=== PATIENT | male | born 1950 | race Caucasian/White ===

== ENCOUNTER 2021-03-10 21:03 | Inpatient (IN) | payer OTHER ==
[~2021-03-10] VITALS: Ht 180.3 cm; Wt 63.2 kg
[2021-03-10 18:15] VITALS: BP 118/67
--- NOTE | 2021-03-11 03:25 | NUR ---
ADMITTED TO ROOM 512 AT 1805 SURING DAY SHIFT. PATIENT WAS RECEIVED SLEEPING IN BED. PATIENT IS A&OX4, DENIES PAIN OR SHORTNESS OF BREATH. ON ROOM AIR, O2 SAT REMAINS ABOVE 94%. VITAL SIGNS ARE STABLE. PATIENT TOLERATE ORAL MEDS WHOLE ONE AT A TIME WITH THIN LIQUIDS. LEFT SIDED HEMIPARESIS PRESENT. LEFT KNEE CONTRACTURE NOTED, PATIENT REPORTS HE WILL GET SMAPS IN THAT LEG SOMETIMES AND IT WILL CONTRACT TO ABOUT 90 DEGREES. HE ALSO REPORTS AT TIMES ONCE HIS LEG IS POSITIONED STRAIGHT, IT WILL STAY THAT WAY AND NOT WANT TO BENT AT ALL. SENSATION IN THAT LOWER EXTREMITY APPEARS TO BE DECREASED. CONTINENT OF BLADDER, URINAL LEFT AT BESIDE AND PATIENT HAS BEEN ABLE TO USE IT INDEPENDENTLY. PATIENT REPORTS NOT HAVING HAD A BM FOR SEVERAL DAYS. PASSING FLATUS, PRN SENNA ADMINISTERED.BOWEL SOUNDS ARE PRESENT, ABD IS SOFT. PATIENT REQUESTED THAT CONSENT FORMS BE SINGED WHEN IS PRESENT DURING THE DAY SHIFT. (PRAVIN) ALSO REQUESTED FOR DPOA PAPERWORK TO BE PROCESSED WHILE SHE COMES AND VISIT DURING THE DAY. FALL PRECAUTIONS IN PLACE, CALL LIGHT WITHIN REACH. WILL CONTINUE TO MONITOR.
[2021-03-11 05:23] LABS: HEMATOCRIT 43.6 % (42.0-52.0); HEMOGLOBIN 14.7 gm/dL (14.0-18.0); MCH 33.4 pg (26.0-34.0); MCHC 33.8 g/dL (28.0-37.0); MCV 98.8 fL (80.0-100.0); RBC 4.42 mil/uL (4.50-6.00); RDW 12.9 % (10.5-14.5); WBC 6.9 thou/uL (4.0-11.0)
[2021-03-11 05:46] LABS: CALCIUM 9.4 mg/dL (8.5-10.1); CREATININE 0.9 mg/dL (0.7-1.3); POTASSIUM 3.6 mmol/L (3.5-5.1)
[2021-03-11 08:00] VITALS: BP 118/67
--- NOTE | 2021-03-11 09:50 | NUR ---
COVID 19 TESTING PERFORMED AT [facility] ON 03/09/21 AND RESULTS WERE NEGATIVE.
--- NOTE | 2021-03-11 09:52 | NUR ---
Chart review, 70 year old male, from [facility]. He was here after a fall at home. Dx prior history of stoke in 2019 and feb 2021. He did not have any therapy after his 1st stroke, he was still independent. Since his stroke in 2020, he needed to stay of 2nd floor of home, has to be pushed around on his rollator walker. Can not use his left side anymore. A & o x 3 with confusion and forgetfulness. He lives at home with his meg # [phone]. In a 2 story victorian house, bedroom, tv room and bathroom on 2nd floor. 4 steps to enter and about 14 steps inside the home. HH was just set up but has note started yet, related to his fall and going back to the hospital. No rehab in the past. Meg manage medication and finances. i am hurting my self caring for him, he needs to get better before coming home per meg.
[2021-03-11 11:16] LABS: CHOLESTEROL 121 mg/dL (<200); HDL CHOLESTEROL 38 mg/dL (>40); LDL CHOLESTEROL 61 mg/dL (<100); TC:HDL 3.2 Ratio (Not establshd); TRIGLYCERIDE 112 mg/dL (<150); VLDL 22 mg/dL (<40)
[2021-03-11 11:25] LABS: FOLIC ACID 4.5 ng/mL (8.6-58.9)
[2021-03-11] MEDS ORDERED: LIPITOR40 MG PO (12:56)
[2021-03-11] MEDS ORDERED: CELEXA 20 MG TA20 MG PO (12:57)
[2021-03-11] MEDS ORDERED: CULTURELLE KID1 EAC1 PO (12:58)
[2021-03-11] MEDS ORDERED: ZESTRIL20 MG PO (12:59)
[2021-03-11] MEDS ORDERED: NICOTINE PATCH1 EAC2 PO (13:01)
[2021-03-11] MEDS ORDERED: PROTONIX40 M4 PO (13:03)
[2021-03-11] MEDS ORDERED: FLORANEX TABLE1 EACH PO (13:04)
[2021-03-11] MEDS ORDERED: HYDROCHLOROTH12.5 M2 PO (13:05)
[2021-03-11] MEDS ORDERED: LEVOFLOXACIN500 MG PO (13:06)
--- NOTE | 2021-03-11 13:29 | NUR ---
Nutrition: RECommend start folate and B12 supplementation based on current levels. Vitamin D level is pending.
--- NOTE | 2021-03-11 14:02 | NUR ---
ADV. DIR. CONSULT [id number] WAS COMLETED BY THIS MOTION PICTURE PROJECTIONIST APPRENTICE. DPOA PAPERWORK WAS PLACED IN THE PATIENT'S CHART.
--- NOTE | 2021-03-11 16:23 | NUR ---
PHONE CALL FROM STATED THAT DR. RUTHERFORD CALLED AND LEFT A MESSAGE AND ASKED WHY NOTHING WAS DONE FOR THIS PATIENT EARLIER AND LIKELYHOOD OF PT GETTING BETTER IS SLIM. DR. RUTHERFORD ALSO STATED TO PT THAT HE LIKELY WOULD NOT RECOVER FROM THIS STROKE. PT IS UPSET AND , THE STATED THAT SHE BEGGED HIM TO GET HELP AND HE REFUSED TO GET TREATMENT. THE FEELS LIKE THIS IS HER FAULT, STATED THAT HE WILL PROBABLY GIVE UP AND NOT WANT TO DO THERAPY. SHE IS TALKING ABOUT HIM WANTING TO GO HOME IF HE CAN'T GET ANY HELP.
[2021-03-11 19:15] VITALS: BP 89/56
[2021-03-11 20:12] LABS: URINE BILIRUBIN NEGATIVE (Negative); URINE BLOOD NEGATIVE (Negative); URINE CLARITY CLEAR; URINE COLOR YELLOW; URINE GLUCOSE-RANDOM* NEGATIVE (Negative); URINE KETONES 1+ (Negative); URINE LEUKOCYTES-REFLEX NEGATIVE (Negative); URINE NITRITE-REFLEX NEGATIVE (Negative); URINE PROTEIN (DIPSTICK) NEGATIVE (Negative); URINE UROBILINOGEN 0.2 E.U./dl (0.2-1.0)
[2021-03-12 01:06] LABS: GLYCOHEMOGLOBIN (HGB A1C) 5.1 % (4.8-5.6)
--- NOTE | 2021-03-12 01:16 | NUR ---
PT ASSESSMENT COMPLETED AND VSS. MEDS GIVEN ORDERED AND WELL TOLERATED. FALL PRECAUTIONS IN PLACE. PT WAS VERY DISCOURAGED. PT STATED THAT HIS DOCTOR SAID THAT HE WOULD NOT GET BETTER. TALKED WITH PT ABOUT HOW REHAB CAN HELP HIM AND TO KEEP TRYING. ASST WITH REPOSITION. SLEEPING WELL. WILL CONTINUE TO MONITOR FREQUENTLY.
--- NOTE | 2021-03-12 16:33 | NUR ---
PT PRESCRIBED NORCO FOR PAIN RELIEF TYLENOL WAS NOT EFFECTIVE FOR BACK PAIN. ALSO HAS LIDOCAINE PATCH TO LOWER BACK. ABLE TO TRANSFER BY STAND PIVOT WITH MOD ASSIST USING GB.
[2021-03-12 19:41] VITALS: BP 118/61
--- NOTE | 2021-03-13 01:59 | NUR ---
ASSUMED CARE AT 1920 OF 03/12. PATIENT IS A&OX3, REORIENTED TO TIME. REPORTED LOWER BACK, ESPECIALLY DURING REPOSITIONING. PRN PAIN MEDICATION ADMINISTERED TO MANAGE PAIN. ASSISTED WITH REPOSITIONING. SMALL AMOUNT OF BLADDER INCONTINENTCE NOTED AND INCONTINENCE PAD CHANGED. URINAL LEFT AT BEDSIDE. FALL PRECAUTIONS IN PLACE, CALL LIGHT WITHIN REACH. WILL CONTINUE TO MONITOR.
[2021-03-13 08:00] VITALS: BP 105/64
--- NOTE | 2021-03-13 17:38 | NUR ---
HAS NOT HAD A BM SINCE 03/08. HAD GIVEN PRN SENOKOT AND MOM THIS AM. DR THEN ORDER DAILY MIRALAX AND SUPP, HOWEVER, PT REFUSED THESE. NO BM OF YET TODAY. PT ALSO WENT TO RADIOLOGY FOR CT OF RT NECK AND LUMBAR AND THORACIC XRAYS TODAY.
[2021-03-13 20:25] VITALS: BP 99/54
--- NOTE | 2021-03-14 03:32 | NUR ---
ASSUMED CARE AT 1915 OF 03/13. PATIENT IS A&OX3, REPORTS PAIN IN LOWER BACK. PRN HYDROCODONE ADMINISTERED TO MANAGE PAIN, AND PATIENT IS REPOSITIONED TOLERATED. PRN SENNA ADMINISTERED, BUT PATIENT REFUSED SUPPOSITORY OFFERED. PATIENT REPORTS HE WOULD BE AGREEABLE TO HAVE A SUPPOSITORY IF HIS IS PRESENT DURING THE DAY. EDUCATION ABOUT THE EEFECTS OF SUPPOSITORIES PROVIDED AND PATIENT IS REASSURED THAT HE WILL BE ASSISTED WITH [facility]. PATIENT REPORTS COMPREHESSION BUT INSISTS HE WOULD BE BE MORE COMFORTABLE IF HE IS PRESENT. ON COMING SHIFT WILL BE NOTIFIED OF THIS. URINAL AT BEDSIDE. FALL PRECAUTIONS IN PLACE, CALL LIGHT WITHIN REACH. WILL CONTINUE TO MONITOR.
--- NOTE | 2021-03-14 07:37 | EKG ---
[address] [address] ELECTROCARDIOGRAM REPORT Name: SANDRO MONTANO Room #: 512-P ADM IN M.R.#: [id number] Admission: 03/10/21 Attend Phys: Lance Hawkins MD Discharge: Date of : 48 Report #: [id number] [facility] Test Date: 2021-03-12 Test Time: 10:22:03 Pat Name: SANDRO MONTANO Department: Room: 512 P Gender: M Pulp Grinder And Blender: JUDD : 1950 Requested By: Sheridan Aleman Order Number: [id number] MD: Amos Tubbs Measurements Intervals [place] Rate: 70 P: 32 HI: 154 QRS: -27 QRSD: 137 T: 53 QT: 506 QTc: 547 Interpretive Statements Sinus rhythm Nonspecific intraventricular conduction delay Nonspecific T abnrm, anterolateral leads No previous ECG available for comparison Electronically Signed On 03-14-2021 7:37:25 [employer] by Amos Tubbs [email or web address] <ELECTRONICALLY SIGNED> By: Amos Tubbs MD, [facility] 03/14/21 0737 1022 1022 Amos Tubbs MD, FACC /EPI
[2021-03-14 07:47] VITALS: BP 108/57
--- NOTE | 2021-03-14 18:23 | NUR ---
PT WORKING SLOWLY TOWARDS GOALS, K-PAD PLACED THIS EVENING. AWAITING MRI RESULTS. PT REPORTS WANTING HIS TO BE HERE.
[2021-03-14 21:32] VITALS: BP 99/59
[2021-03-14 21:45] VITALS: BP 117/70
--- NOTE | 2021-03-15 00:37 | NUR ---
PT ASSESSMENT COMPLETED AND VSS. MEDS GIVEN ORDERED AND WELL TOLERATED. FALL PRECAUTIONS IN PLACE. ASST WITH REPOSITION FOR COMFORT USING PILLOWS. BARRIER CREAM APPLIED TO BOTTOM. O BM NOTED. SENNA GIVEN. PRN PAIN MEDICATION HELPFUL. SLEEPING WELL. WILL CONTINUE TO MONITOR FREQUENTLY. ENC FLUIDS.
--- NOTE | 2021-03-15 01:09 | NUR ---
CONTACTED SPINNER FIXER LUANA REGARDING TODAYS TEST RESULTS MRI AND EKG. WANTED TO MAKE SURE THAT THE RESULTS HAD BEEN SEEN BY SPINNER FIXER. NO NEW ORDERS.
[2021-03-15 07:30] VITALS: BP 93/51
--- NOTE | 2021-03-15 13:46 | 2DMMODE ---
[facility] [place] [address] 2 D/M-MODE ECHOCARDIOGRAM Name: SANDRO MONTANO Room #: 512-P ADM IN M.R.#: [id number] Admission: 03/10/21 Attend Phys: Lance Hawkins MD Discharge: Date of : 48 Report #: [id number] THIS REPORT FOR: cc: Dalton Freitas MD, Peter J MD Santiago, Patrick MD [facility] ~ APPROVED REPORT Study performed: 03/15/2021 13:06:11 EXAM: Comprehensive 2D, Doppler, and color-flow Echocardiogram Patient Location: Bedside Room #: 512 Status: routine BSA: 1.89 HR: 83 bpm BP: 93/51 mmHg Rhythm: NSR Other Information Study Quality: Fair Technically limited study due to lung disease. Indications CVA. Hx: HTN, HLP, COPD. Echo Enhancing Agent Comments: No IV access for bubble study. 2D Dimensions RVDd: 28.32 mm IVSd: 10.28 (7-11mm) LVOT Diam: 21.38 (18-24mm) LVDd: 48.61 mm PWd: 10.69 (7-11mm) LVDs: 34.59 (25-40mm) Aortic Root: 33.35 mm Volumes Left Atrial Volume (Systole) Single Plane 4CH: 24.58 mL Single Plane 2CH: 27.07 mL LA ESV Index: 15.00 mL/m2 Aortic Valve [facility] [address] [place] [address] 2 D/M-MODE ECHOCARDIOGRAM Name: SANDRO MONTANO Room #: 512-P [facility] IN ..#: [id number] Admission: 03/10/21 Attend Phys: Lance Hawkins MD Discharge: Date of : 48 Report #: [id number] Peak Dontae.: 1.40 m/s AO Peak Gr.: 7.84 mmHg LVOT Max P.61 mmHg LVOT Max V: 1.07 m/s FELICIA Vmax: 2.75 cm2 Mitral Valve E/A Ratio: 0.7 MV Decel. Time: 147.39 ms MV E Max Dontae.: 0.38 m/s MV A Dontae.: 0.53 m/s MV PHT: 42.74 ms IVRT: 76.12 ms Pulmonary Valve PV Peak Dontae.: 0.93 m/s PV Peak Gr.: 3.46 mmHg Tricuspid Valve TR Peak Dontae.: 2.15 m/s RAP Estimate: 5.00 mmHg TR Peak Gr.: 18.47 mmHg PA Pressure: 23.00 mmHg Left Ventricle The left ventricle is normal size. There is normal LV segmental wall motion. There is normal left ventricular wall thickness. Left ventricular systolic function is normal. LVEF is 60-65%. Mild diastolic dysfunction is present (impaired relaxation pattern). Right Ventricle The right ventricle is normal size. The right ventricular systolic function is normal. Atria The left atrium size is normal. The right atrium size is normal. Aortic Valve The aortic valve is normal in structure; mildly calcified. No aortic regurgitation is present. There is no aortic valvular stenosis. Mitral Valve The mitral valve is normal in structure. There is no mitral valve regurgitation noted. No evidence of mitral valve stenosis. Tricuspid Valve [facility] [address] [address] 2 D/M-MODE ECHOCARDIOGRAM Name: SANDRO MONTANO Room #: 512-P [facility] IN ..#: [id number] Admission: 03/10/21 Attend Phys: Lance Hawkins MD Discharge: Date of : 48 Report #: [id number] The tricuspid valve is normal in structure. Trace tricuspid regurgitation. Estimated PAP is 23mmHg. Pulmonic Valve Pulmonic valve is not well visualized. Great Vessels The aortic root is normal in size. Ascending aorta is not well visualized. IVC is not well visualized. Pericardium There is no pericardial effusion. <Conclusion> Normal left ventricular size/wall thickness and Ejection fraction 55-60% Normal right ventricular size/function Normal atrial size Aortic valve are mildly calcified/in no stenosis Normal mitral valve structure and function Trace tricuspid valve insufficiency Pulmonary systolic pressure estimated 23 mmHg No pericardial effusion Normal aortic root size <ELECTRONICALLY SIGNED> By: Amos Tubbs MD, [facility] 03/15/21 1346 1346 45 Amos Tubbs MD, FACC /INF
--- NOTE | 2021-03-15 14:55 | NUR ---
HAD ECHO DONE TODAY. HELD AM LISINOPRIL BASED ON PARAMETERS GIVEN. HERE TODAY AND STAFF COUNSELOR CAME AT NOON FOR NOTARY PURPOSES PER REQUEST.
[2021-03-15 19:57] VITALS: BP 116/67
--- NOTE | 2021-03-16 01:15 | NUR ---
PT ASSESSMENT COMPLETED AND VSS. MEDS GIVEN ORDERED AND WELL TOLERATED. FALL PRECAUTIONS IN PLACE. ASST WITH REPOSITION USING PILLOWS FOR COMFORT. PT ENJOYED ORANGE JUICE THIS EVENING. PRN PAIN MEDICATION HELPFUL FOR BACK PAIN. SLEEPING WELL. WILL CONTINUE TO MONITOR FREQUENTLY.
[2021-03-16 06:06] LABS: BASOPHILS 0.5 % (0.0-2.0); EOSINOPHILS 0.9 % (0.0-3.0); HEMATOCRIT 38.9 % (42.0-52.0); HEMOGLOBIN 13.4 gm/dL (14.0-18.0); MCH 33.8 pg (26.0-34.0); MCHC 34.6 g/dL (28.0-37.0); MCV 97.8 fL (80.0-100.0); MONOCYTES 12.3 % (1.0-8.0); PLATELET COUNT 201 thou/uL (150-400); POLYS 73.3 % (36.0-66.0); RBC 3.98 mil/uL (4.50-6.00); RDW 12.8 % (10.5-14.5); WBC 6.8 thou/uL (4.0-11.0)
[2021-03-16 06:38] LABS: CALCIUM 8.7 mg/dL (8.5-10.1); MAGNESIUM 2.3 mg/dL (1.8-2.4); POTASSIUM 3.2 mmol/L (3.5-5.1)
[2021-03-16 07:20] VITALS: BP 93/56
--- NOTE | 2021-03-16 13:24 | NUR ---
PATIENT IS ALERT, AND ORIENTED X 3-4, ABLE TO VOICE NEED. LCTA, RESP EVEN/UNLABORED, NO SOA/CYANOSIS NOTED. BS+X4, ABD SOFT NON-TENDER TO TOUCH. PATIENT IS REFUSING TO EAT, DID NOT EAT BREAKFAST, CHOOSE NOT TO EAT LUNCH WELL DESPITE ENCOURAGEMENT FROM MULTIPLE STAFF. PATIENT STATES "IT WON'T DO ANY GOOD, AM NOT GOING TO GET BETTER". PRN TYLENOL GIVEN FOR BACK PAIN OF 5/10 AT 1241 HOURS. PATIENT INITIALLY DENIES PAIN DURING MORNING ASSESSMENT. GOT CALL FROM (MUSTAPHA) CAT SCAN STAFF WHO STATES THAT PATIENT HAS ORDER FOR CT OF HEAD AND NECK, WILL NEED IV LINE. AND TO CALL CT SCAN WHEN IV ACCESS IF GAINED. THIS RN CALLED AND NOTIFY MUSTAPHA THAT IV ACCESS GAINED BY STAFF, BUT PATIENT IS CURRENTLY IN THERAPY. SHE STATES WILL HAVE PATIENT DOWN FOR 1430HRS. PT/OT WORKING WITH PATIENT. PATIENT SEEMED VERY DEPRESSED, LOOKS LIKE HE IS GIVING-UP HOPE. NO SIGN OF ACUTE DISTRESS NOTED AT THIS TIME, WILL MONITOR FOR SAFETY.
[2021-03-16 19:51] VITALS: BP 106/56
--- NOTE | 2021-03-17 02:37 | NUR ---
ASSUMED CARE AT 1915 OF 03/16. PATIENT A&OX3, FORGETFUL AT TIMES. REPORTS LOWER BACK PAIN WHICH IS MANAGED WITH PRN PAIN MEDICATION AND HEATING PAD PER PATIENT REQUEST. PO FLUID INTAKE ENCOURAGED, ENJOYED SOME ORANGE JUICE AT HS BUT REFUSED OTHER SNACKS OFFERED. ASSISTED WITH REPOSITIONING. URINAL LEFT AT BEDSIDE. TOLERATED ORAL MEDS WHOLE ONE AT TIME WITH THIN LIQUIDS. FALL PRECAUTIONS IN PLACE, CALL LIGHT WITHIN REACH. WILL CONTINUE TO MONITOR.
--- NOTE | 2021-03-17 11:39 | NUR ---
PT WAS UP IN W/C AFTER JUST FINISHING WITH BREAKFAST. PT WANTED TO GET BACK IN BED. EXPLAINED TO PT THAT HE WAS GOING TO HAVE THERAPY IN JUST A BIT AND WOULD NEED TO STAY UP IN HIS W/C. THEN PT PURPOSELY SCOOTED HIMSELF [facility] OUT OF HIS WHEELCHAIR TO THE POINT HE ALMOST FELL OUT OF THE CHAIR. AFTER GETTING PT SAFELY AND SECURELY BACK IN HIS CHAIR, REITERATED TO PT THE REASON HE WAS UNABLE TO GET BACK INTO BED RIGHT THEN. DARYN HURD, NOTIFIED OF PT'S BEHAVIORS.
--- NOTE | 2021-03-17 12:49 | NUR ---
team meeting, recommendation: mod to severe memory and cognition. Max assist with transfers and mobility. Moderate to max assist for adl's . Will needs assist with ADLs, pills and bills. Flat affect. Poor po intake. had ENT consult. consult psych- depression/anxiety, consult dietitian. Re team.
--- NOTE | 2021-03-17 16:16 | NUR ---
DR. RUSSELL WANTED TO RE-CONSULT NEURO REGARDING ABNL RESULTS OF CT. TOLD DR LEMOS THAT DR MONTENEGRO SAW PT ON 03/15 AND STATED THERE WAS NOTHING TO BE DONE AREA WAS COMPLETELY OCCLUDED, SO HE WAS SIGNING OFF. DR RUSSELL ALSO WANTED A CONSULT TO ENT, WHICH HAD ALREADY BEEN REQUESTED, AND A CONSULT TO PROMOTIONS OFFICER FOR CALORIE COUNTING WHICH WAS PUT IN TODAY. A CONSULT REQUEST WAS ALSO PLACED WITH DR. SKY'S OFFICE.
[2021-03-17 20:00] VITALS: BP 115/67
--- NOTE | 2021-03-18 03:17 | NUR ---
PATIENT CARE WAS RESUMED AT 1900. HE IS ALAERT AND ORIENTED X4. MAS ASSIST WITH CARE.LUNGS ARE CLEAR BS ACTIVE X 4 QUAD. HE IS CONTINIT OF BOEWL AND BALDER. SALINE LOCK TO HIS RT AC IS INTACT.MAX ASSIT WITH CARE AND TRANSFER. BED IS LOW, LOCKED AND ALARMED. QHOURLY ROUND ONGOING.
[2021-03-18 08:00] VITALS: BP 107/62
--- NOTE | 2021-03-18 15:20 | NUR ---
cm delivered a skilled list, fpc list, private duty list and senior blue book, left with daniel in with his clothing for his to look at when she visits.
[2021-03-18 19:27] VITALS: BP 121/66
--- NOTE | 2021-03-19 04:48 | NUR ---
NO SIGNIFICANT CHANGES DURING THE NIGHT. PT HAS FLAT AFFECT BUT IS COOPERATIVE. C/O BACK PAIN. PRN PAIN MEDICATION GIVEN WITH SOME RELIEF. PT HAS SINCE BEEN SLEEPING MOST OF THE NIGHT. RESPIRATIONS EVEN AND UNLABORED. FALL PRECAUTIONS IN PLACE. WILL CONTINUE TO MONITOR FURTHER.
--- NOTE | 2021-03-19 06:40 | NUR ---
PT HAS HAD POOR PO INTAKE DURING THE NIGHT. HE HAS NOT VOIDED YET THIS SHIFT, DESPITE MUCH PROMPTING AND HELP WITH USING THE URINAL. BLADDER SCANNED >241ML. ENCOURAGED PT TO INCREASE PO INTAKE. WILL UPDATED ONCOMING NURSE.
[2021-03-19 08:00] VITALS: BP 141/70
[2021-03-19 20:52] VITALS: BP 121/76
--- NOTE | 2021-03-20 03:48 | NUR ---
assumed care approx 1900 evening 03/19. pt lying in bed with head of bed elevated at change of shift. pt voiding per urinal. pt took hs meds with water tolerating well. pt appears to be sleeping soundly. bed alarm on and call light in reach. will continue to monitor.
[2021-03-20 10:03] VITALS: BP 117/71
--- NOTE | 2021-03-20 10:53 | NUR ---
PATIENT CARE RESUMMED; PATIENT WAS IN HIS ROOM LYING SUPINE ON LEFT SIDE DURING MEDICATION PASS; PATIENT HAD SPILLED URINAL ON SELF IN BED, SHOT BLASTER AND YARDER ENGINEER CLEANED UP PATIENT ALTHOUGH PATIENT WAS VERY FRUSTRATED AND ANGRY WITH CARE; PATIENT PRIOR HAD REFUSED ALL MORNING MEDICATIONS; PATIENT HAD THEN REFUSED TO EAT HIS BREAKFAST STATING "HARD TO JUST HAVE AN APPITIE IN THIS UNGODLY PLACE." PATIENT WAS INFORMED THAT IF WE DONT EAT THAT THERES A POSSIBLITY HE COULD GET A PEG TUBE. SHOT BLASTER EDUCATED PATIENT ON HEALTHY EATING AND THE CONCERNS BEHIND A PEG TUBE. PATIENT DECIDED TO EAT HIS MEAL @1030 AFTER WARMING UP BREAKFAST.
[2021-03-20 13:55] VITALS: BP 117/71
--- NOTE | 2021-03-20 17:01 | HC ---
[facility] [place] [address] CONSULTATION Name: SANDRO MONTANO Room #: 512-P [facility] IN .R.#: [id number] Admission: 03/10/21 Attend Phys: Lance Hawkins MD Discharge: Date of : 48 Report #: [id number] THIS REPORT FOR: cc: Dalton Freitas MD, Peter J MD Deutch,Erick Perez. PhD ~ DATE OF SERVICE: 03/13/2021 NEUROBEHAVIORAL STATUS EXAM DATE OF CONSULTATION: 03/13/2021 ATTENDING PHYSICIAN: Lance Hawkins M.D. MATHS TUTOR: Erick Valle, PhD. CLINICAL PRESENTATION: The patient is a 70-year-old male admitted to the hospital following worsening of ability to meet activities of daily living. The patient was transferred from [facility] with a worsening of left hemiparesis from a fall at his home. He had a suspected stroke in January of 2021. The patient had a CT scan that revealed a large subacute right frontoparietal stroke. His assessment on admission to the rehabilitation unit is a large subacute right frontoparietal CVA, left hemiparesis, dysphagia, acute L3 compression fracture, questionable cognitive deficits, hypertension, hyperlipidemia, and cervical DJD. A complete description of his medical condition and history can be found in his medical record. Neuropsychological consultation was requested to provide assistance in the assessment of cognitive and emotional status and to provide recommendations and services. Prior to this most recent admission, the patient was living with the assistance of his in their home. He carries a longstanding history of severe alcohol abuse and tobacco use. He has 2 children and 1 step child. This is his fourth marriage. Reportedly he was smoking approximately 1 pack per day of cigarettes and use of alcohol to be approximately 5-6 glasses of wine daily. The patient and his do not report him having had previous treatment for mood or alcohol/drug abuse. The patient is a high school graduate. 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 TECHNIQUES UTILIZED: Clinical interview, review of medical records, staff consultation and behavioral observation, family interview - . Mini mental status exam 2 standard version and clock drawing. EXAMINATION FINDINGS: The patient was alert and cooperative with the assessment. He described the reason for his hospitalization as a fall in which [facility] [address] [place] [address] CONSULTATION Name: SANDRO MONTANO Chris Room #: 512-P [facility] IN .R.#: [id number] Admission: 03/10/21 Attend Phys: Lance Hawkins MD Discharge: Date of : 48 Report #: [id number] he struck his head. Balance issues and feelings of helplessness he described with his increased dependence on his spouse. The patient is reported to have had personality changes including variability in cognition beginning in June of 2019. His has been providing assistance with basic and instrumental activities of daily living including bathing, toileting and nutrition along with management of medication and bills. The patient indicates feelings of depression and anxiety along with the sleep disturbance. The patient's performance on the MMSE 2 brief version was extremely low with a raw score of 12/16. He was 3/3 for initial registration, 4/5 for orientation to time, 4/[address]. He was 1/3 for immediate recall of 3 items after a brief time delay and distraction. The patient required assistance from the orientation board to answer questions of general orientation. Performance on the MMSE 2 standard version was extremely low with a raw score of 22/30 He was 2/5 for serial sevens, 2/2 for naming, 1/1 for repetition, 3/3 for comprehension. He could follow a single geometric design and provide a sentence. The patient was unable to copy a simple geometric design. Clock drawing was incorrect with both visual spacial construction and number placement. The patient is presenting with severe deficits in cognitive function. Longstanding history of alcohol abuse may be contributing to his presentation along with vascular disease. DIAGNOSTIC IMPRESSION: 1. Major neurocognitive disorder (dementia) specifying with intermittent irritability -- extent to be determined, likely in the mild to moderate range. 2. Alcohol use disorder -- persistent. 3. Unspecified anxiety disorder with depression. RECOMMENDATIONS: The patient will continue to require 24-hour care to provide assistance in the management of medication, finances, and nutrition. Alcohol use should be discontinued. Tobacco use should also be discontinued. His should be discouraged from enabling behavior. She will likely require individual psychotherapy or supportive group counseling regarding issues of enabling. A treatment program for both alcohol abuse and mood as indicated. Continued speech therapy to assist with the use of compensatory strategies for cognition. His indicates inability to care for him given his current level of [address] [address] CONSULTATION Name: SANDRO MONTANO Room #: 512-P [facility] IN M.R.#: [id number] Admission: 03/10/21 Attend Phys: Lance Hawkins MD Discharge: Date of : 48 Report #: [id number] functioning. Placement is likely to be necessary. Thank you very much for allowing me to provide the consultation on this patient. <ELECTRONICALLY SIGNED> By: Erick Valle, PhD 03/20/21 1701 1215 195 Erick Valle, PhD /nt
[2021-03-20 20:41] VITALS: BP 119/65
--- NOTE | 2021-03-20 23:59 | NUR ---
assumed care approx 1900 evening 03/20. pt lying in bed with head of bed elevated at change of shift resting and watching [employer] game on tv. pt voiding per urinal. pt with poor appetite however pt did take all his hs meds tolerating well. pt seems somewhat tired however vitals sign stable, no fever denies sore throat, minimal cough, non productive. pt tested for covid and result positive this night. Alethea contacted and advised that we will be moving him to room 354 per housekeeper head. call light in reach. will continue to monitor.
--- NOTE | 2021-03-21 00:22 | NUR ---
REPORT CALLED TO AUGUSTA ON 3WEST. WILL TRANSFER PT SOON ROOM BECOMES AVAILABLE. WILL CONTINUE TO MONITOR.
[2021-03-21 01:05] VITALS: BP 115/79
--- NOTE | 2021-03-21 01:10 | NUR ---
TRANSFERRED PT TO ROOM 354 VIA BED WITHOUT DIFFICULTY. AUGUSTA RN IN ROOM GREETING PT UPON ARRIVAL TO FLOOR.
--- NOTE | 2021-03-21 04:39 | NUR ---
ASSUMED CARE OF PT AT APPROXIMATELY 0100. PT TRANSFERRED TO ROOM 354 FROM INPATIENT REHAB UNIT AFTER TESTING POSITIVE FOR COVID SUNDAY NIGHT 03/20. SLIGHT COUGH NOTED, BUT NO OTHER SYMPTOMS OBSERVED AT THIS TIME. PT IS CALM AND COOPERATIVE, AND JUST WANTED TO GET SOME REST. VSS UPON TRANSFER. WILL CONTINUE TO OBSERVE FOR CHANGES.
[2021-03-21 07:45] VITALS: BP 93/62
--- NOTE | 2021-03-21 08:17 | NUR ---
Noted he was transferred over this past weekend to when he tested positive for COVID. Enhanced Isolation for covid.
[2021-03-21 10:17] LABS: HEMATOCRIT 40.4 % (42.0-52.0); HEMOGLOBIN 13.2 gm/dL (14.0-18.0); MCH 32.6 pg (26.0-34.0); MCHC 32.7 g/dL (28.0-37.0); MCV 99.6 fL (80.0-100.0); RBC 4.06 mil/uL (4.50-6.00); RDW 13.2 % (10.5-14.5); WBC 7.1 thou/uL (4.0-11.0)
[2021-03-21 10:30] LABS: CALCIUM 9.5 mg/dL (8.5-10.1); MAGNESIUM 2.4 mg/dL (1.8-2.4); POTASSIUM 4.1 mmol/L (3.5-5.1)
[2021-03-21 19:19] VITALS: BP 110/71
--- NOTE | 2021-03-22 04:39 | NUR ---
PT SLOWLY PROGRESSING TOWARD GOALS. A&OX3-4 WITH OCCASIONAL CONFUSION/FORGETFULNESS NOTED, THOUGH IS ABLE TO COMMUNICATE WANTS AND NEEDS TO STAFF. VSS, HS BP MED HELD DUE TO SBP <120. PT HAS NO C/O AT THIS TIME, WILL CONTINUE TO OBSERVE FOR CHANGES
[2021-03-22 08:52] VITALS: BP 119/63
[2021-03-22 15:41] VITALS: BP 97/54
--- NOTE | 2021-03-22 18:31 | NUR ---
ASSUMED PATIENT CARE AT 0700. ALERT. DEPRESSED. POOR APPETITE. VSS. NOT TOWARDS POC GOALS.
[2021-03-22 19:58] VITALS: BP 107/64
--- NOTE | 2021-03-22 22:10 | NUR ---
PT RESTING QUIETLY. VSS AFEBRILE. NO C/O PAIN. NO S/S DISTRESS. LEFT SIDE WEAKNESS NOTED. BED DOWN CALL LIGHT IN REACH. BED ALARM IS ON.
[2021-03-23 08:16] VITALS: BP 110/73
--- NOTE | 2021-03-23 17:59 | NUR ---
ASSUMED PATIENT CARE AT 0700. A/O X3. POOR APPATITE, WORK WITH PT/OT. NOT TOWARDS POC GOALS,
[2021-03-23 19:27] VITALS: BP 117/68
--- NOTE | 2021-03-23 23:06 | NUR ---
PT SLEEPING IN BED, EASILY AROUSED FOR ASSESSMENT AND ADL CARES. PT REMAINS IN POSITION,L SIDE FLACCID, DIMINISHED LUNG SOUNDS. INCONTINENT. COMPLIANT WITH MEDS AND ADL CARES.BED ALARM ON.
[2021-03-24 08:16] VITALS: BP 115/67
--- NOTE | 2021-03-24 13:59 | NUR ---
Team meeting, recommendation. Enhanced covid isolation. Wheelchair. possible to have at home visit before dc. mod to max assist for sit to stand. Re team. stop the peg tube placement. Mod to severe memory and cognition.
--- NOTE | 2021-03-24 18:34 | NUR ---
assumed care of pt at 0700. pt aox2 no acute distress. appetite showing improvement. ate approx 80% of breakfast, 40% of lunch, and 100% of dinner. plans for pg tube halted. ENT notified of biopsy. instructed to hold plavix for 3 days, starting tomorrow, with plans for biopsy on sunday. rehab efforts ongoing. fiorellam.
[2021-03-24 19:45] VITALS: BP 110/64
[2021-03-25 08:07] VITALS: BP 119/71
[2021-03-25 09:00] VITALS: BP 123/67
--- NOTE | 2021-03-25 12:39 | NUR ---
Alethea returned cm call from yesterday. Active listening and support during phone call. She mentioned that dr called her yesterday and SCREEN VENT BINDER called her today. She had many question about division of assets, she spoke with the elder law gentleman who told me, this is not what i do and can same money by having a social services do this for you, they are supposed to per Alethea. Education that i would have first source call her. Education on hh, private duty, hcbs when he gets [place] Medicaid, senior blue book, dme and family training prior to dc home. Well you all will see that this home is not going to work for him, and we cant just sell our house. This has been killing me caring for him at home and have not even been able to visit my elderly portents that live 25[place] away. I am really concerns, not that i do not want him home, we can not afford private duty and don't think going to be able to move him to the living room, that's not going to work but you will see that when do the home visit. How is he going to get in and out of the tub, cant even fit walker in through the doors, this is a 2 story [facility] home per Alethea. Cont. active listening and more support, education on bath bench to slid across into the tub shower, having groceries delivered and baby monitor to be able to see him in the home. $99 per month through [place] and then a tip, guess have to come up with more money for that. thank you for taking the time to talk with me per Alethea. Will cont. following as needed.
[2021-03-25 15:52] VITALS: BP 123/67
--- NOTE | 2021-03-25 16:34 | NUR ---
RN ASSUMED PT'S CARE AT 0700AM, PT IS A&OX3 ( PERSON, PLACE AND TIME ), PT CAN FOLLOW COMMANDS, PT IS ON ROOM AIR , PT'S O2SAT AND VS ARE STABLE AT DAY SHFIT , PT IS CONTINUING COVID ISOLATION, PT HAS WORKED WITH PT/OT, PT GETS UP TO CHAIR WITH MAX ASSIST, PT'S LOW BACK PAIN CAN CONTORL .
[2021-03-25 19:42] VITALS: BP 115/57
--- NOTE | 2021-03-25 23:29 | NUR ---
PT SLEEPING IN BED, EASILY AROUSED FOR ASSESSMENT AND MEDICATIONS. PT DECLINED HS SNACK, WANTED SODA. PALE SKIN TONE, REMAINS CONTRACTED AND IN POSITION. REMAINS INCONTINENT. BED ALARM ON. R NECK MASS REMAINS.
--- NOTE | 2021-03-26 05:57 | NUR ---
PT SLEPT UNTIL AWAKENED BY STAFF FOR INTERACTIONS. 10 HOURS.
[2021-03-26 07:47] VITALS: BP 121/64
[2021-03-26 08:30] VITALS: BP 121/64
--- NOTE | 2021-03-26 17:54 | NUR ---
RN ASSUMED PT'S CARE AT 0700AM, PT IS A&OX3 ( PERSON, PLACE AND TIME),PT IS CONTINUING TO WORK WITH PT&OT , PT IS ON ROOM AIR , PT'S O2SAT AND VS ARE STABLE BY THIS TIME. RN HAS REPORTED TO REHAB CRAY FISHING HAND ABOUT PT'S BLACK STOOL ( ONE TIME) TODAY, NEW ORDER RECEIVED, RN WILL REPORT TO NEXT SHIFT TO KEEP EYE ON PT.
[2021-03-26 19:10] VITALS: BP 121/62
[2021-03-26 19:15] VITALS: BP 121/62
--- NOTE | 2021-03-27 00:11 | NUR ---
PT RESTING QUIETLY. NO C/O PAIN. NO S/S DISTRESS. VSS AFEBILE. UNLABORED ON RA.BED DOWN CALLLIGHT IN REACH. BED ALARM IS ON.
[2021-03-27 04:11] VITALS: BP 109/49
[2021-03-27 05:46] LABS: HEMOGLOBIN 9.7 gm/dL (14.0-18.0); MCH 32.9 pg (26.0-34.0); MCHC 33.4 g/dL (28.0-37.0); MCV 98.5 fL (80.0-100.0); RBC 2.95 mil/uL (4.50-6.00); RDW 13.6 % (10.5-14.5); WBC 8.1 thou/uL (4.0-11.0)
[2021-03-27 07:37] VITALS: BP 117/53
--- NOTE | 2021-03-27 08:18 | NUR ---
PT PROGRESSING TOWARDS D/C GOALS. VSS AFEBRILE. NO C/O PAIN OR SOA. NO SKIN BREAKDOWN NOTED. LEFT SIDE WEAK/ FLACCID. ASSISTED PT WITH TURNS BED DOWN CALL LIGHTIN REACH. BED ALARM IS ON.
--- NOTE | 2021-03-27 17:14 | NUR ---
RN ASSUMED PT'S CARE AT 0700AM,PT IS A&OX3 ( PERSON, PLACE AND TIME), PT IS ON ROOM AIR , PT IS CONTINUING COVID ISOLATION, PT IS MICAELA STATUS FOR WEAKNESS, RN HAS REPORTED TO GI DR AND REHAB URGENT CARE PHYSICIAN ASSISTANT ABOUT PT HAS BLACK STOOL FOR 2 DAYS, POSITIVE OCCULT BLOOD IN STOOL, PT'S HGB HAS REDUCED TO 9.7 FROM 13.2,NEW ORDER RECEIVED, PT IS NPO AFTER MN, PT MAY HAVE EGD TOMORROW.
[2021-03-27 19:25] VITALS: BP 120/66
[2021-03-27 23:39] VITALS: BP 116/61
--- NOTE | 2021-03-28 01:07 | NUR ---
PT ALERT AND ORIENTED X4. VSS AFEBRILE. UNLABORED ON RA. DENIED PAIN. PT NPPO AFTER MN FOR BX AND POSSIBLE EGD. BED DOWN CALL LIGHT IN REACH. GOLDY CONTINUE TO MONITOR PT FOR BLEEDING OR AN CHANGES.
--- NOTE | 2021-03-28 02:33 | NUR ---
PT ANXIOUS REGARDING NPO AFTER MN FOR POSSIBLE EGD AND BX TODAY. HE DOES NOT WANT TO GO IF HIS CAN NOT BE HERE T GO WITH HIM. WILL INFORM DAY SHIFT. VSS NO OTHER S/S DISTRESS.
[2021-03-28 06:03] LABS: ABSOLUTE NEUTROPHILS 5.8 thou/uL (1.4-8.2); BASOPHILS 0.5 % (0.0-2.0); EOSINOPHILS 1.8 % (0.0-3.0); HEMATOCRIT 28.4 % (42.0-52.0); HEMOGLOBIN 9.5 gm/dL (14.0-18.0); LYMPHOCYTES 18.9 % (24.0-44.0); MCHC 33.6 g/dL (28.0-37.0); MCV 98.2 fL (80.0-100.0); MONOCYTES 7.8 % (1.0-8.0); PLATELET COUNT 277 thou/uL (150-400); RBC 2.89 mil/uL (4.50-6.00); RDW 13.4 % (10.5-14.5); WBC 8.1 thou/uL (4.0-11.0)
--- NOTE | 2021-03-28 06:23 | NUR ---
NO CHANGES IN ASSESSMENT. NO BLOODY STOOLS TONIGHT. NO S/S BLEEDING NOTED.
[2021-03-28 06:25] LABS: % SATURATION 23 % (20-39); IRON 49 ug/dL (65-175); TIBC 217 ug/dL (250-450)
[2021-03-28 06:27] LABS: ALBUMIN 2.8 g/dL (3.4-5.0); CALCIUM 8.8 mg/dL (8.5-10.1); CREATININE 0.8 mg/dL (0.7-1.3); MAGNESIUM 2.1 mg/dL (1.8-2.4); POTASSIUM 3.7 mmol/L (3.5-5.1); TOTAL BILIRUBIN 0.3 mg/dL (0.2-1.0)
--- NOTE | 2021-03-28 11:20 | NUR ---
voice message passed on from cm team. left message with question on when moving back up to 5[facility], when getting his biopsy by ent and is he going for his egd. I want to see him before he goes for that per meg. CM spoke with floor nurse, who stated his bedside nurse is currently on the phone with meg. He has already had the needle asp bx by dr english this am, going to get to see him today. he will be going to egd and moving back up to 5n rehab. Will cont following as needed.
--- NOTE | 2021-03-28 11:26 | NUR ---
REPORT GIVEN TO ANGELES ON 5N.
--- NOTE | 2021-03-28 11:42 | NUR ---
PATIENT UNDERWENT A RIGHT NECK NEEDLE ASPIRATION BIOPSY TODAY AT BESIDE, PERFORMED BY ENT DR ADELSO FALCON AT BEDSIDE. PATIENT TOLERATED PROCEDURE WELL AND HAS HAD NO COMPLANTS OF PAIN AND NO BLEEDING TO SITE. SITE IS DRESSED WITH AN OCCLUSIVE ADHESIVE BANDAGE.
[2021-03-28 15:17] VITALS: BP 101/56
[2021-03-28 19:42] VITALS: BP 108/53
--- NOTE | 2021-03-29 01:38 | NUR ---
PT ASSESSMENT COMPLETED AND VSS. MEDS GIVEN ORDERED AND WELL TOLERATED. FALL PRECAUTIONS IN PLACE. ASST WITH REPOSITION USING PILLOWS FOR COMFORT. PT VOIDING MODERATE AMOUNT OF DARK YELLOW URINE PER URINAL. PT WAS INCONTINENT OF LARGE AMOUNT OF URINE DURING THE NIGHT. BARRIER CREAM APPLIED TO BOTTOM. PT SLEEPING WELL AT THIS TIME. DENIES NEEDS. WILL CONTINUE TO MONITOR FREQUENTLY.
[2021-03-29 06:53] LABS: CALCIUM 8.6 mg/dL (8.5-10.1); CREATININE 0.8 mg/dL (0.7-1.3); POTASSIUM 3.6 mmol/L (3.5-5.1)
[2021-03-29 08:00] VITALS: BP 103/69
[2021-03-29 09:21] LABS: HEMATOCRIT 29.4 % (42.0-52.0); HEMOGLOBIN 9.8 gm/dL (14.0-18.0); MCH 32.9 pg (26.0-34.0); MCHC 33.3 g/dL (28.0-37.0); RBC 2.97 mil/uL (4.50-6.00); RDW 13.9 % (10.5-14.5); WBC 7.8 thou/uL (4.0-11.0)
--- NOTE | 2021-03-29 14:07 | NUR ---
SPIRITUAL CARE CONSULT [id number] WAS COMPLETED BY THIS MULTIPLE GAMES DEALER. WE HAD A GOOD VISIT. WE DISCUSSED HER BEING AN AIRFORCE . WE EXPLORED THE GRIEF ISSUES SURROUNDING THE RECENT LOSS OF A SON. SHE DOES HAVE 3 GREAT GRAND CHILDREN THAT SHE ADORES.
--- NOTE | 2021-03-29 19:15 | NUR ---
PT UP WITH ASSIST X2 GB FOR STAD PIVOT TRANSFER. PT TOLERATING REGULAR DIET. PT REFUSED DINNER THIS EVENING. PT WORKS WITH THERAPIES. WILL CONTNIUE TO MONITOR.
[2021-03-29 21:00] VITALS: BP 113/66
--- NOTE | 2021-03-30 05:05 | NUR ---
ASSUMED CARE OF PT AT 1915 ON 03/29/21. PT IS A&OX3. IS ON ROOM AIR. REPORTED MILD BACK PAIN THAT IS BEING MANAGED WITH ORAL & TOPICAL PAIN MEDS & OTHER THERAPUETIC TECHINIQUES. IS STABLE. CONTINUES WITH LEFT SIDED FALCIDITY. IS & SOME SLURRED SPEECH. IS UP WITH MAX ASSIST X2, GB, STAND PIVOT TO CHAIR & BSC. FALL PRECAUTIONS & HOURLY ROUNDING CONTINUED THIS SHIFT. VOIDS PER URINAL. IS ABLE TO REPOSITION SELF IN BED WITHOUT ASSISTANCE. FREQUENTLY TURNS. LABS & VITALS REVIEWED. CALL LIGHT WITHIN REACH. CURRENTLY ASLEEP. WILL CONTINUE TO MONITOR.
[2021-03-30 06:31] LABS: HEMATOCRIT 29.7 % (42.0-52.0); HEMOGLOBIN 10.1 gm/dL (14.0-18.0); MCHC 34.1 g/dL (28.0-37.0); MCV 99.7 fL (80.0-100.0); RBC 2.98 mil/uL (4.50-6.00); WBC 5.6 thou/uL (4.0-11.0)
[2021-03-30 08:21] VITALS: BP 93/62
[2021-03-30 13:01] LABS: URINE BILIRUBIN NEGATIVE (Negative); URINE BLOOD NEGATIVE (Negative); URINE CLARITY CLEAR; URINE COLOR YELLOW; URINE GLUCOSE-RANDOM* NEGATIVE (Negative); URINE KETONES NEGATIVE (Negative); URINE LEUKOCYTES-REFLEX NEGATIVE (Negative); URINE NITRITE-REFLEX NEGATIVE (Negative); URINE PROTEIN (DIPSTICK) NEGATIVE (Negative); URINE SPECIFIC GRAVITY >= 1.030 (1.005-1.035); URINE UROBILINOGEN 0.2 E.U./dl (0.2-1.0)
--- NOTE | 2021-03-30 17:06 | PATH ---
[facility] [address] [place] [address] PATHOLOGY RPT PROCEDURE Name: SANDRO MONTANO Room #: 511-P [facility] [place] .R.#: [id number] Admission: 03/10/21 Date of : 48 Discharge: Report #: [id number] Path Case #: [id number] Note [facility] Accession Number: [id number] TESTS RESULT FLAG UNITS REF RANGE LAB Clinician Provided Cytology Information No. 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 THE SPECIMEN CONSISTS OF ONCOCYTES WITHIN A DIRTY PROTEINACEOUS BACKGROUND ADMIXED WITH LYMPHOCYTES. ABUNDANT RED BLOOD CELLS ARE PRESENT. Pathologist ICD10: 02 D11.0 Signed out by: 02 Basim Sheridan DO, Pathologist NPI- [id number] Performed by: 01 Jacqui Hill, Pelt Dropper ([facility]) FLAG LEGEND: L-Low Normal,H-High Normal,LL-Alert Low,HH-Alert High <-Panic Low,>-Panic High,A-Abnormal,AA-Critical Abnormal Performed at: 01 [facility] [address] [place] [address] Maurilio Toure MD, [address] [address] Bakari Anglin MD, Specimen Comment: A courtesy copy of this report has been sent to [phone] Specimen Comment: Report sent to Performed at: 01 [facility] [address], [place], [place] [id number] MD Maurilio Toure MD Phone: [phone]
[2021-03-30 21:15] VITALS: BP 107/76
--- NOTE | 2021-03-31 02:43 | NUR ---
assumed care approx 0 evening 03/30. pt lying in bed with head of bed elevated at change of shift. pt with left sided weakness. pt with urinal at bedside. pt took hs meds with water one at a time tolerating well. pt appears to be sleeping soundly. bed alarm on and call light in reach. will continue to monitor.
[2021-03-31 09:00] VITALS: BP 107/76
--- NOTE | 2021-03-31 12:56 | NUR ---
Team meeting, recommendation, is not wanting to modify the home to bring him home. She does not want a wheelchair in the home. Wants him to be able to go upstairs to sleep in the bed and sit on his 4ww so she can push him on the walker. Poor sitting balanced at this time. Needing mod to max assist with pt and ot treatment. Appetite has increased. SNF will be recommendation, by if going home and can care for him. had question for MD, yes, he can make progress with more skilled therapy. follow up with pain management if he still having pain after snf. 04/02/21
[2021-03-31 22:25] VITALS: BP 94/47
--- NOTE | 2021-04-01 00:57 | NUR ---
PATIENT CARE WAS RESUMED AT 1900.HE IS ALERT AND ORIENTED. MAX ASSIST WITH CARE. ABLE TO VERBALIZE SOME NEEDS. LUNGS ARE CLEAR BS ACTIVE X4 QUADS. HE IS CONTINENT OF BOWEL AND BLADDER AND NEED ASSISTANCE WITH FIORELLA-CARE. HE TOOK HIS MEDS WHOLE. DENIES PAINS AT THIS TIME.HE USES A URINAL. CALL LIGHT AT REACH, CONTINUE CARE AND MONITOR.
[2021-04-01 08:43] VITALS: BP 97/56
--- NOTE | 2021-04-01 10:18 | NUR ---
[facility] called and they have declined this skilled referral. [facility] accepted. CM will notified his meg of the above information. Passed on information to [facility] [employer]DER [employer] and unit nurse utilities manager. possible dc today or sunday. Will not be using express transportation at discharge. Will cont following as needed.
[2021-04-01] MEDS ORDERED: TYLENOL EXTRA500 MG PO (12:06)
[2021-04-01] MEDS ORDERED: FOLIC ACID1 MG PO (12:06)
[2021-04-01] MEDS ORDERED: FLOMAX0.4 MG PO (12:06)
[2021-04-01] MEDS ORDERED: NICOTINE1 EAC2 TRANSDERM (12:06)
[2021-04-01] MEDS ORDERED: EFFEXOR XR75 MG PO (12:06)
[2021-04-01] MEDS ORDERED: MEGESTROL400 MG/11 PO (12:06)
[2021-04-01] MEDS ORDERED: VITAMIN B-12500 MCG PO (12:06)
[2021-04-01] MEDS ORDERED: PLAVIX 75 MG TA75 M1 PO (12:06)
[2021-04-01] MEDS ORDERED: VITAMINC500 PO (12:06)
[2021-04-01] MEDS ORDERED: LISINOPRIL2.5 MG PO (12:06)
[2021-04-01] MEDS ORDERED: BAYER CHEWABLE81 MG PO (12:06)
[2021-04-01] MEDS ORDERED: LIDOCAINE1 EACH TRANSDERM (12:06)
[2021-04-01] MEDS ORDERED: ZINC SULFATE50 MG PO (12:06)
[2021-04-01] MEDS ORDERED: VITAMIN D325 MC2 PO (12:06)
[2021-04-01] MEDS ORDERED: MIRALAX17 GM PO (12:06)
--- NOTE | 2021-04-01 13:40 | NUR ---
PT DISCHARGED VIA TRANSPORT SERVICE TO SNF. PT'S BELONGINGS SENT WITH PT. REPORT CALLED TO NURSE PONCE AT 1330 AT . ENTIRE CHART, DC INSTRUCTIONS AND DC SUMMARY SENT WITH PT. PT DISCHARGED AT 1340 IN STABLE CONDITION.
== END 2021-04-01 13:40 | DRG 40 ==
LOC: 3W 21:03
PROVIDERS: Hospitalist; Nurse Practitioner; Nurse Practitioner Family; Psychiatry & Neurology Psychiatry; ADMIT Physical Medicine & Rehabilitation; ATTEND Physical Medicine & Rehabilitation
PROC: 0W3P8ZZ Control Bleeding in Gastrointestinal Tract, Via Natural or Artificial Opening Endoscopic (ICD-10-PCS; principal; 2021-03-28)
PROC: 07B13ZX Excision of Right Neck Lymphatic, Percutaneous Approach, Diagnostic (ICD-10-PCS; principal; 2021-03-28)
DX: I63.89 Other cerebral infarction (principal); E43 Unspecified severe protein-calorie malnutrition; U07.1 COVID-19; K55.21 Angiodysplasia of colon with hemorrhage; G81.94 Hemiplegia, unspecified affecting left nondominant side; M48.56XA Collapsed vertebra, not elsewhere classified, lumbar region, initial encounter for fracture; D62 Acute posthemorrhagic anemia; R13.10 Dysphagia, unspecified; I10 Essential (primary) hypertension; M47.892 Other spondylosis, cervical region; D64.9 Anemia, unspecified; I65.21 Occlusion and stenosis of right carotid artery; E78.5 Hyperlipidemia, unspecified; R31.9 Hematuria, unspecified; F01.50 Vascular dementia, unspecified severity, without behavioral disturbance, psychotic disturbance, mood disturbance, and anxiety; F32.9 Major depressive disorder, single episode, unspecified; F41.9 Anxiety disorder, unspecified; F17.210 Nicotine dependence, cigarettes, uncomplicated; E53.8 Deficiency of other specified B group vitamins; N40.0 Benign prostatic hyperplasia without lower urinary tract symptoms; K21.9 Gastro-esophageal reflux disease without esophagitis; G89.29 Other chronic pain; M54.9 Dorsalgia, unspecified; D11.0 Benign neoplasm of parotid gland; Z71.6 Tobacco abuse counseling; Z79.82 Long term (current) use of aspirin; Z79.899 Other long term (current) drug therapy
CPT/HCPCS: 10112; 62110; 62900; 70005